=== PATIENT | male | born 1990 | race Caucasian/White ===

== ENCOUNTER 2019-08-09 16:52 | Emergency (ER) | payer SELFPAY ==
[~2019-08-09] VITALS: Ht 175.3 cm; Wt 109.3 kg
[2019-08-09 17:15] VITALS: BP 151/61
--- NOTE | 2019-08-09 17:17 | NUR ---
PT TO [facility]
[2019-08-09 18:37] VITALS: BP 151/61
--- NOTE | 2019-08-09 18:38 | NUR ---
Patient discharged with v/s stable. Written and verbal after care instructions given and explained. Patient alert, oriented and verbalized understanding of instructions. Ambulatory with steady gait. All questions addressed prior to discharge. ID band removed. Patient advised to follow up with PMD. Rx of TAMIFLU given. Patient educated on indication of medication including possible reaction and side effects. Opportunity to ask questions provided and answered.
== END 2019-08-09 18:38 | disposition home or self-care (01) ==
LOC: MED 16:52
DX: R05 Cough (principal); R50.9 Fever, unspecified; E86.0 Dehydration; R09.89 Other specified symptoms and signs involving the circulatory and respiratory systems; R61 Generalized hyperhidrosis
CPT/HCPCS: 99283